=== PATIENT | female | born 1995 ===

== ENCOUNTER 2024-06-19 10:55 | Outpatient (CLI) | payer OTHER | END 2024-06-19 10:56 | disposition home or self-care (01) | LOC: PRENATAL 10:55 | PROVIDERS: ATTEND Obstetrics & Gynecology Maternal & Fetal Medicine | DX: O45.90 Premature separation of placenta, unspecified, unspecified trimester (principal); O09.219 Supervision of pregnancy with history of pre-term labor, unspecified trimester; O14.90 Unspecified pre-eclampsia, unspecified trimester; Z3A.20 20 weeks gestation of pregnancy ==

== ENCOUNTER → 2024-09-13 16:05 | Outpatient (CLI) | payer OTHER | END | disposition home or self-care (01) | LOC: PRENATAL 16:05 | DX: O26.849 Uterine size-date discrepancy, unspecified trimester (principal); O36.8199 Decreased fetal movements, unspecified trimester, other fetus; O09.219 Supervision of pregnancy with history of pre-term labor, unspecified trimester; O14.90 Unspecified pre-eclampsia, unspecified trimester; Z3A.31 31 weeks gestation of pregnancy ==